=== PATIENT | female | born 1965 | race Caucasian/White ===

== ENCOUNTER 2017-09-18 06:42 | Observation (INO) | payer BC ==
[2017-09-18] MEDS ORDERED: TDAP Vaccine 0.5 mL Syr IM ONE (07:51)
--- NOTE | 2017-09-18 08:06 | ED PDOC ---
Arrival/HPI - General Chief Complaint: Medical Clearance Time Seen by Provider: 09/18/17 07:40 Historian: Patient - History of Present Illness Narrative History of Present Illness (Text): 09/18/17 07:57 52 year old female, whose past medical history includes chronic trigeminal neuralgia, presents to the emergency department complaining of exacerbation of her trigeminal neuralgia since last week that worsened yesterday. Patient was prescribed Trazodone 50mg and took it for the first time yesterday. Patient took 8 pills of total of 400mg trying to relieve the pain. She also reports taking Flexeril and Andrelpax as well. Patient reports she woke up at 6AM to go to work and had a syncopal episode. Patient chipped her front top tooth and has a laceration on the lower lip. Patient denies chest pain, palpitations, shortness of breath, abdominal pain, nausea, vomiting, diarrhea, or any other complaints. Time/Duration: 1 week Symptom Onset: Gradual Symptom Course: Worsening Activities at Onset: Light Context: Home Past Medical History - Provider Review Nursing Documentation Reviewed: Yes - Infectious Disease Hx of Infectious Diseases: None - Tetanus Immunization Tetanus Immunization: Unknown - Reproductive Menopause: Yes - Cardiac Hx Cardiac Disorders: No - Pulmonary Hx Respiratory Disorders: No - Neurological Hx Migraine: Yes Other/Comment: TRIGEMINAL NERVE PAIN - HEENT Hx HEENT Disorder: No - Renal Hx Renal Disorder: No - Endocrine/Metabolic Hx Endocrine Disorders: No - Hematological/Oncological Hx Blood Disorders: No - Integumentary Hx Dermatological Disorder: No - Musculoskeletal/Rheumatological Hx Musculoskeletal Disorders: No - Gastrointestinal Hx Gastrointestinal Disorders: No Other/Comment: ELEVATED LIVER ENZYMES - Genitourinary/Gynecological Hx Genitourinary Disorders: No - Psychiatric Hx Psychophysiologic Disorder: No Hx Depression: No Hx Emotional Abuse: No Hx Physical Abuse: No Hx Substance Use: No - Past Surgical History Past Surgical History: No Previous - Anesthesia Hx Anesthesia: No - Suicidal Assessment Feels Threatened In Home Enviroment: No Family/Social History - Physician Review Nursing Documentation Reviewed: Yes Family/Social History: No Known Family HX Smoking Status: Never Smoked Hx Alcohol Use: No Hx Substance Use: No Hx Substance Use Treatment: No Allergies/Home Meds Allergies/Adverse Reactions: Allergies Penicillins Adverse Reaction (Verified 09/18/17 07:17) RASH Home Medications: Home Meds Medication Instructions Recorded Confirmed Eletriptan HBr [Relpax] 40 mg PO PRN PRN 05/04/15 09/18/17 traZODone [trazODONE HYDROCHLORIDE] 50 mg PO HS 09/18/17 09/18/17 Review of Systems - Physician Review All systems were reviewed & negative as marked: Yes - Review of Systems Respiratory: absent: SOB Cardiovascular: absent: Chest Pain, Palpitations Gastrointestinal: absent: Abdominal Pain, Diarrhea, Nausea, Vomiting Physical Exam Vital Signs Reviewed: Yes Vital Signs Temp Pulse Resp BP Pulse Ox 09/18/17 13:40 67 18 100/57 L 97 09/18/17 11:09 61 18 106/71 97 09/18/17 06:58 97.6 F 54 L 16 99/64 L 97 Temperature: Afebrile Blood Pressure: Normal Pulse: Regular Respiratory Rate: Normal Appearance: Positive for: Well-Appearing, Non-Toxic, Comfortable Pain Distress: None Mental Status: Positive for: Alert and Oriented X 3 - Systems Exam Head: Present: Atraumatic, Normocephalic Pupils: Present: PERRL Extroacular Muscles: Present: EOMI Conjunctiva: Present: Normal Mouth: Present: Moist Mucous Membranes, Other (Chipped her front top right tooth and laceration to the lower lip) Pharnyx: No: ERYTHEMA, EXUDATE, TONSILS ENLARGED Neck: Present: Normal Range of Motion Respiratory/Chest: Present: Clear to Auscultation, Good Air Exchange. No: Respiratory Distress, Accessory Muscle Use Cardiovascular: Present: Regular Rate and Rhythm, Normal S1, S2. No: Murmurs Abdomen: Present: Normal Bowel Sounds. No: Tenderness, Distention, Peritoneal Signs Back: Present: Normal Inspection Upper Extremity: Present: Normal Inspection. No: Cyanosis, Edema Lower Extremity: Present: Normal Inspection. No: Edema Neurological: Present: GCS=15, CN II-XII Intact, Speech Normal, Motor Func Grossly Intact, Normal Sensory Function, Normal Cerebellar Funct, Norm Deep Tendon Reflexes, Gait Normal, Memory Normal, Normal 2Pt Descrimination Skin: Present: Warm, Dry, Normal Color, Laceration (2 cm lower lip laceration which does not cross the vermilion border.). No: Rashes Psychiatric: Present: Alert, Oriented x 3, Normal Insight, Normal Concentration Medical Decision Making ED Course and Treatment: 09/18/17 07:57 Impression: 52 year old female presents complaining of exacerbation of her trigeminal neuralgia since last week that worsened yesterday which caused her to take 8 pills of her Trazodone 50mg with her Flexeril and andrelpax. Patient had a syncopal episode at 6AM. Plan: -- CT Head w/o Contrast -- EKG -- Labs -- Chest X-ray -- Boostrix vaccine Inj -- Urinalysis -- Reassess and disposition Progress Notes: PROCEDURE: CT HEAD WITHOUT CONTRAST. Dictator : Otoniel Casey MD Report Date : 09/18/2017 08:53:42 IMPRESSION: Normal CT of the Head. No intracranial mass, hemorrhage or evidence of acute infarct. PROCEDURE: Chest X-ray Dictator : Otoniel Casey MD Report Date : 09/18/2017 09:07:56 IMPRESSION: No active disease. 09/18/17 11:40 Laceration repair. The wound was prepped and draped in usual sterile fashion using Betadine. Normal saline solution irrigation. 1% with epinephrine lidocaine was injected. The wound was closed with 5-0 nylon sutures. Sterile dressing was applied. Patient tolerated the procedure well. 09/18/17 11:43 EKG shows normal sinus rhythm rate approximately [address] or T-wave changes - Lab Interpretations Lab Results: 09/18/17 08:19 09/18/17 08:19 Lab Results 09/18/17 09:00: Urine Opiates Screen Negative, Urine Methadone Screen Negative, Ur Barbiturates Screen Negative, Ur Phencyclidine Scrn Negative, Ur Amphetamines Screen Negative, U Benzodiazepines Scrn Negative, U Oth Cocaine Metabols Negative, U Cannabinoids Screen Negative 09/18/17 09:00: Urine Color Yellow, Urine Appearance Clear, Urine pH 6.0, Ur Specific [place] 1.020, Urine Protein 30 H, Urine Glucose (UA) Negative, Urine Ketones Negative, Urine Blood Negative, Urine Nitrate Negative, Urine Bilirubin Negative, Urine Urobilinogen 0.2, Ur Leukocyte Esterase Negative, Urine RBC 0 - 2, Urine WBC 0 - 2, Ur Epithelial Cells 1 - 3, Amorphous Sediment Few, Urine Bacteria Few, Hyaline Casts 0 - 2, Coarse Granular Casts Trace H 09/18/17 08:19: Acetaminophen < 10.0 L 09/18/17 08:19: Alcohol, Quantitative < 10 09/18/17 08:19: Sodium 140, Potassium 4.1, Chloride 103, Carbon Dioxide 28, Anion Gap 13, BUN 21, Creatinine 0.7, Est GFR ( Amer) > 60, Est GFR (Non- Af Amer) > 60, Random Glucose 109, Calcium 9.6, Phosphorus 4.1, Magnesium 2.0, Total Bilirubin 0.4, AST 32, ALT 49, Alkaline Phosphatase 60, Lactate Dehydrogenase 405, Total Creatine Kinase 49, Troponin I < 0.01, Total Protein 7.1, Albumin 4.4, Globulin 2.8, Albumin/Globulin Ratio 1.6 09/18/17 08:19: PT 11.6, INR 1.01, APTT 23.5 L 09/18/17 08:19: WBC 3.4 L D, RBC 4.68, Hgb 13.8, Hct 41.3, MCV 88.2, MCH 29.5, MCHC 33.4, RDW 12.9, Plt Count 181, MPV 10.7, Gran % 58.9, Lymph % (Auto) 34.0, [place] % (Auto) 4.7, Eos % (Auto) 1.5, Baso % (Auto) 0.9, Gran # 2.01, Lymph # 1.2 , [place] # 0.2, Eos # 0.1, Baso # 0.03 I have reviewed the lab results: Yes - RAD Interpretation Radiology Orders: 09/18/17 07:49 HEAD W/O CONTRAST [CT] Stat 09/18/17 07:50 CHEST PORTABLE [RAD] Stat CT scan of the head as read by the radiologist shows no acute findings. Trade Embalmer: Radiologist - EKG Interpretation Interpreted by ED Physician: Yes Type: 12 lead EKG - Medication Orders Current Medication Orders: Carbamazepine (Tegretol) 100 mg PO TID ANDREA PRN Reason: Protocol Famotidine (Pepcid) 20 mg PO 1000,2200 ANDREA Gabapentin (Neurontin) 300 mg PO HS ANDREA PRN Reason: Protocol Heparin Sodium (Porcine) (Heparin) 5,000 units SC Q8 ANDREA PRN Reason: Protocol Last Admin: 09/18/17 14:57 Dose: 5,000 units MAR aPTT Document 09/18/17 14:57 LA (Rec: 09/18/17 15:02 LA [id number]) aPTT aPTT (secs) 23.5 Subcutaneous Administrations Document 09/18/17 14:57 LA (Rec: 09/18/17 15:02 LA [id number]) Injection Site MAR Injection Site Left Arm Charges for Administration # of Subcutaneous Administrations 1 Sodium Chloride (Sodium Chloride 0.9%) 1,000 mls @ 100 mls/hr IV .Q10H ANDREA Last Admin: 09/18/17 14:54 Dose: 100 mls/hr eMAR Start Stop Document 09/18/17 14:54 LA (Rec: 09/18/17 14:57 LA [id number]) Intravenous Solution Start Date 09/18/17 Start Time 14:57 Discontinued Medications Tetanus/Reduced Diphtheria/Acell Pertussis (Boostrix Vaccine Inj) 0.5 ml IM .ONCE ONE Stop: 09/18/17 07:52 Last Admin: 09/18/17 11:05 Dose: 0.5 ml MAR Immunization Data Document 09/18/17 11:05 [facility] (Rec: 09/18/17 11:06 [facility] [id number]) Immunization Data Vaccine Information Sheet Given No Immunization Registry Document 09/18/17 11:05 [facility] (Rec: 09/18/17 11:06 [facility] [id number]) Immunization Registry Consent Date 09/18/17 - Scribe Statement The provider has reviewed the documentation as recorded by the Justyn Fuchs Provider Scribe Attestation: All medical record entries made by the Kathyibjuan were at my direction and personally dictated by me. I have reviewed the chart and agree that the record accurately reflects my personal performance of the history, physical exam, medical decision making, and the department course for this patient. I have also personally directed, reviewed, and agree with the discharge instructions and disposition. Disposition/Present on Arrival - Present on Arrival Any Indicators Present on Arrival: No History of DVT/PE: No History of Uncontrolled Diabetes: No Urinary Catheter: No History of Decub. Ulcer: No History Surgical Site Infection Following: None - Disposition Have Diagnosis and Disposition been Completed?: Yes Diagnosis: Syncope, Overdose, Laceration of lower lip Disposition: HOSPITALIZED Disposition Time: 11:44 Patient Plan: Observation, Telemetry Patient Problems: Current Active Problems Problem Status Onset Laceration of lower lip Acute Overdose Acute Syncope Acute Condition: GOOD
[2017-09-18 08:29] LABS: BASO # 0.03 K/mm3 (0.0-2.0); BASO % 0.9 % (0.0-3.0); EOS # 0.1 (0.0-0.7); EOS % 1.5 % (1.5-5.0); GRAN # 2.01 (1.4-6.5); GRAN % 58.9 % (50.0-68.0); HEMOGLOBIN 13.8 g/dL (12.0-16.0); LYMPH # 1.2 (1.2-3.4); MEAN CELL VOLUME 88.2 fl (80.0-105.0); MEAN CORPUSCULAR HEMOGLOBIN 29.5 pg (25.0-35.0); MEAN CORPUSCULAR HGB CONC 33.4 g/dl (31.0-37.0); MEAN PLATELET VOLUME 10.7 fl (7.0-11.0); MONO # 0.2 (0.1-0.6); MONO % 4.7 % (1.0-6.0); RBC 4.68 10^6/uL (3.5-6.1); RED CELL DISTRIBUTION WIDTH 12.9 % (11.5-14.5); WHITE BLOOD COUNT 3.4 10^3/ul (4.5-11.0)
[2017-09-18 08:43] LABS: ALB/GLOB RATIO 1.6 (1.1-1.8); ALBUMIN 4.4 g/dL (3.0-4.8); ALT/SGPT 49 U/L (7-56); AST/SGOT 32 U/L (14-36); BLOOD UREA NITROGEN 21 mg/dL (7-21); CALCIUM 9.6 mg/dL (8.4-10.5); GFR AFRICAN-AMERICAN > 60; GFR NON-AFRICAN AMERICAN > 60
[2017-09-18 08:45] LABS: INR 1.01 (0.93-1.08); PARTIAL THROMBOPLASTIN TIME 23.5 Seconds (25.1-36.5); PROTHROMBIN TIME 11.6 SECONDS (9.4-12.5)
[2017-09-18 08:52] LABS: TROPONIN I < 0.01 ng/mL
--- NOTE | 2017-09-18 08:55 | CT ---
PROCEDURE: CT HEAD WITHOUT CONTRAST. HISTORY: syncope COMPARISON: None available. TECHNIQUE: Axial computed tomography images were obtained through the head/brain without intravenous contrast. Radiation dose: Total exam DLP = 814.63 mGy-cm. This CT exam was performed using one or more of the following dose reduction techniques: Automated exposure control, adjustment of the mA and/or kV according to patient size, and/or use of iterative reconstruction technique. FINDINGS: HEMORRHAGE: No intracranial hemorrhage. BRAIN: No mass effect or edema. No atrophy or chronic microvascular ischemic changes. VENTRICLES: Unremarkable. No hydrocephalus. CALVARIUM: Unremarkable. PARANASAL SINUSES: Unremarkable as visualized. No significant inflammatory changes. MASTOID AIR CELLS: Unremarkable as visualized. No inflammatory changes. OTHER FINDINGS: None. IMPRESSION: Normal CT of the Head. No intracranial mass, hemorrhage or evidence of acute infarct.
--- NOTE | 2017-09-18 09:09 | RAD ---
HISTORY: syncope COMPARISON: 10/31/2013 FINDINGS: LUNGS: No active pulmonary disease. PLEURA: No significant pleural effusion identified, no pneumothorax apparent. CARDIOVASCULAR: Normal. OSSEOUS STRUCTURES: No significant abnormalities. VISUALIZED UPPER ABDOMEN: Normal. OTHER FINDINGS: None. IMPRESSION: No active disease.
[2017-09-18 09:12] LABS: URINE APPEARANCE CLEAR (CLEAR); URINE BILIRUBIN NEGATIVE (NEGATIVE); URINE BLOOD NEGATIVE (NEGATIVE); URINE COLOR YELLOW (YELLOW); URINE GLUCOSE (UA) NEGATIVE (NEGATIVE); URINE LEUKOCYTE ESTERASE NEGATIVE Leu/uL (NEGATIVE); URINE NITRATE NEGATIVE (NEGATIVE); URINE PROTEIN 30 mg/dL (<30 mg/dL); URINE UROBILINOGEN 0.2 E.U./dL (<1 E.U./dL)
[2017-09-18 09:16] LABS: URINE BACTERIA FEW (NEG); URINE COARSE GRANULAR CAST TRACE /hpf (0-2); URINE RBC 0 - 2 /hpf (0-2); URINE WBC 0 - 2 /hpf (0-6)
[2017-09-18 09:17] LABS: URINE AMORPHOUS SEDIMENT FEW; URINE HYALINE CAST 0 - 2 /hpf
[2017-09-18 09:34] LABS: BARBITURATES, UR NEGATIVE (NEGATIVE); BENZODIAZEPINES, UR NEGATIVE (NEGATIVE); OPIATES, UR NEGATIVE (NEGATIVE); PHENCYCLIDINE, UR NEGATIVE (NEGATIVE)
[2017-09-18] MEDS ORDERED: Lidocaine 1% Inj (20ml) ONE (11:01)
[2017-09-18] MEDS: Sodium Chloride 0.9% 1,000 ML IV SCH (14:54)
--- NOTE | 2017-09-18 17:31 | CARD ---
APPROVED REPORT EKG Measurement Heart [id number] ID [id number] <Conclusion> Sinus bradycardia Possible Left atrial enlargement Borderline ECG
--- NOTE | 2017-09-18 17:41 | RAD ---
PROCEDURE: Right Knee Radiographs. HISTORY: fall COMPARISON: None. FINDINGS: BONES: Normal. No fracture. JOINTS: Normal. No osteoarthritis. JOINT EFFUSION: None. OTHER FINDINGS: None. IMPRESSION: Normal radiographs of the right knee.
--- NOTE | 2017-09-18 19:58 | CP.PCM.HP ---
<Mark Whiting - Last Filed: 09/18/17 19:44> History of Present Illness - History of Present Illness History of Present Illness: Mark Whiting DO PGY1 - Internal Medicine H&P CC: Fainting and fall HPI: 52 yo F with PMH of trigeminal neuralgia diagnosed in 2007 presents s/p fall this morning. Patient reports that yesterday night her pain flared up, so she took 300mg Carbemazepine at 7PM, then 900mg Gabapentin at 8PM, then 600mg Horizant at 11PM which finally enabled her to sleep. When she woke up in the morning, she again had the pain, and so she took 40mg Relpax and then 200mg Trazodone at 6AM. She had never taken Trazodone prior to this, and was not aware that it would cause drowsiness. After taking these medications, patient walked to her bathroom, then got dizzy and blacked out, hitting her face (lip and tooth) on the vanity in her bathroom, then fell to the floor. She denies any tongue biting, bowel/bladder incontinence. She reports that prior to this, she had stopped taking all her medications because she was prescribed ibuprofen for back pain, and was worried that it would interact with her other medications. She denies any thoughts of suicide or depression. Patient was seen at around 2 PM, at which time she denies any chest pain, shortness of breath, confusion, headache, nausea, vomiting, diarrhea, constipation, abdominal pain, palpitations, numbness, weakness, tremor, dizziness, vision changes, hearing loss, tinnitus, vertigo. She was only complaining of some clumsiness in her right arm, which was slightly improved since the morning, and pain in her right knee, which she had previously injured. Remainder of 12 point ROS negative. 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; lives at home with her FHx: DM in multiple family members All: Penicillins Present on Admission - Present on Admission Any Indicators Present on Admission: No Past Patient History - Infectious Disease Hx of Infectious Diseases: None - Tetanus Immunizations Tetanus Immunization: Unknown - Past Social History Smoking Status: Never Smoked - CARDIAC Hx Cardiac Disorders: No - PULMONARY Hx Respiratory Disorders: No - NEUROLOGICAL Hx Migraine: Yes Other/Comment: TRIGEMINAL NERVE PAIN - HEENT Hx HEENT Problems: No - RENAL Hx Chronic Kidney Disease: No - ENDOCRINE/METABOLIC Hx Endocrine Disorders: No - HEMATOLOGICAL/ONCOLOGICAL Hx Blood Disorders: No - INTEGUMENTARY Hx Dermatological Problems: No - MUSCULOSKELETAL/RHEUMATOLOGICAL Hx Musculoskeletal Disorders: No - GASTROINTESTINAL Hx Gastrointestinal Disorders: No Other/Comment: ELEVATED LIVER ENZYMES - GENITOURINARY/GYNECOLOGICAL Hx Genitourinary Disorders: No - PSYCHIATRIC Hx Psychophysiologic Disorder: No Hx Depression: No Hx Emotional Abuse: No Hx Physical Abuse: No Hx Substance Use: No - SURGICAL HISTORY Hx Surgeries: No - ANESTHESIA Hx Anesthesia: No Meds Home Medications: Home Medication List Medication Instructions Recorded Confirmed Type Gabapentin [Neurontin] 600 mg PO HS cap 09/19/17 Rx Methylprednisolone [Medrol Dose 4 mg PO DAILY #21 mg 09/19/17 Rx Pack (21 tabs)] carBAMazepine [Tegretol] 200 mg PO BID tab 09/19/17 Rx Allergies/Adverse Reactions: Allergies Allergy/AdvReac Type Severity Reaction Status Date / Time Penicillins AdvReac RASH Verified 09/18/17 07:17 Physical Exam - Constitutional Appears: Non-toxic, No Acute Distress - Head Exam Head Exam: NORMOCEPHALIC Additional comments: Chipped right maxillary incisor; stitches in place over lower lip - Eye Exam Eye Exam: EOMI, Normal appearance, PERRL. absent: Nystagmus, Periorbital tenderness, Scleral icterus - ENT Exam ENT Exam: Mucous Membranes Moist - Neck Exam Neck exam: Positive for: Normal Inspection - Respiratory Exam Respiratory Exam: Clear to Auscultation Bilateral, NORMAL BREATHING PATTERN - Cardiovascular Exam Cardiovascular Exam: RRR, +S1, +S2 - GI/Abdominal Exam GI & Abdominal Exam: Normal Bowel Sounds, Soft. absent: Tenderness - Extremities Exam Extremities exam: Positive for: full ROM, normal inspection. Negative for: pedal edema Additional comments: Medial aspect of right knee tender. No effusion. Knees appear symmetric. Full ROM intact - Neurological Exam Neurological exam: Alert, CN II-XII Intact, Oriented x3, Reflexes Normal - Expanded Neurological Exam Expanded Patient oriented to: person, place Cranial nerves: EOM's Intact: Normal, Tongue Deviation: Normal Ataxia: No Cerebellar Function: Finger to Nose: Normal, Heel to Francis: Normal Sensory exam: Lower Extremity Light Touch: Normal, Upper Extremity Light Touch: Normal Neuro motor strength exam: Left Upper Extremity: 5, Right Upper Extremity: 5, Left Lower Extremity: 5, Right Lower Extremity: 5 DTR: Achilles Tendon Left: 2+, Achilles Tendon Right: 2+, Bicep Left: 2+, Bicep Right: 2+ Coma Scale Eye Opening: SPONTANEOUS Coma Scale Motor Response: OBEYS COMMANDS Coma Scale Verbal: Oriented Coma Scale Total: 15 - Psychiatric Exam Psychiatric exam: Normal Affect, Normal Mood - Skin Skin Exam: Dry, Intact, Normal Color, Warm Results - Vital Signs Recent Vital Signs: Last Vital Signs Temp 97.6 F 09/18/17 06:58 Pulse 81 09/18/17 17:10 Resp 18 09/18/17 17:10 BP 111/79 09/18/17 17:10 Pulse Ox 99 09/18/17 17:10 - Labs Result Diagrams: 09/18/17 08:19 09/18/17 08:19 Assessment & Plan - Assessment and Plan (Free Text) Assessment: 52 yo F with PMH of trigeminal neuralgia presents after accidental overdose and fall Plan Medication overdose - Patient took multiple antiepileptics and sedatives within 12 hours at supertherapeutic doses and subsequently syncopized and fell - Called poison control who recommended monitoring for signs of serotonergic excess for 6-8 hours - Currently VSS, all labs WNL, and neuro exam unremarkable - Seizure precautions - Neurochecks and Vitals Q6H - Admit to telemetry for monitoring Fall with head trauma - Patient has chipped tooth and facial laceration; stitched in ER - CT head negative - Patient seen ambulating in ER - Neuro exam normal - Fall precautions - Patient also complaining of right knee pain; ordered XR - PT eval/treat Trigeminal neuralgia - Patient is on multiple medications for pain, but does not take them consistently, and does not seem to understand when or how to use PRN medications - Resume Gabapentin and Carbapazepine tonight, which patient reports regular use of - Requested neurology consult; appreciate recs GI/DVT Ppx: Pepcid and Heparin Patient seen, discussed, and reviewed with attending Dr. Rousseau <Randell Rousseau - Last Filed: 09/19/17 16:57> Results - Vital Signs Recent Vital Signs: Last Vital Signs Temp 97.8 F 09/19/17 05:35 Pulse 78 09/19/17 10:00 Resp 20 09/19/17 05:35 BP 113/77 09/19/17 05:35 Pulse Ox 97 09/19/17 05:35 - Labs Result Diagrams: 09/19/17 06:40 09/19/17 06:40 Labs: Laboratory Results - last 24 hr 09/19/17 09/19/17 06:40 06:40 WBC 3.9 L RBC 4.28 Hgb 12.4 Hct 37.4 MCV 87.4 MCH 29.0 MCHC 33.2 RDW 12.9 Plt Count 195 MPV 11.0 Gran % 49.6 L Lymph % (Auto) 43.0 H [place] % (Auto) 5.1 Eos % (Auto) 1.8 Baso % (Auto) 0.5 Gran # 1.94 Lymph # 1.7 [place] # 0.2 Eos # 0.1 Baso # 0.02 Sodium 141 Potassium 4.1 Chloride 107 Carbon Dioxide 27 Anion Gap 11 BUN 16 Creatinine 0.7 Est GFR ( Amer) > 60 Est GFR (Non-Af Amer) > 60 Random Glucose 102 Calcium 9.6 Phosphorus 3.7 Magnesium 2.0 Total Bilirubin 0.4 AST 24 ALT 47 Alkaline Phosphatase 60 Total Protein 6.6 Albumin 3.9 Globulin 2.7 Albumin/Globulin Ratio 1.4 Attending/Attestation - Attestation I have personally seen and examined this patient.: Yes I have fully participated in the care of the patient.: Yes I have reviewed all pertinent clinical information: Yes Notes (Text): I have seen and examined the patient at bedside. Agree with the above note with the following additions/ exceptions: Briefly this is 52 year old female with history of trigeminal neuralgia who overmedicated herself accidentally and fell. Patient was not aware of medications side effects. Teaching provided. Poison control was notified. Patient expressed concerns regarding persistent facial pain and headache. Neurologist will be consulted. CT head negative. Lip laceration was repaired in ED. Reports knee pain status post fall. Xray pending. Upon discharge patient will follow up with Dr Trinh and PMD of choice. Dr Randell rousseau
[2017-09-19 01:03] VITALS: RESP 20
[2017-09-19 01:37] VITALS: O2SAT 97
[2017-09-19 05:36] VITALS: BP 113/77; TEMP 97.8
[2017-09-19 07:18] LABS: BASO # 0.02 K/mm3 (0.0-2.0); BASO % 0.5 % (0.0-3.0); EOS # 0.1 (0.0-0.7); EOS % 1.8 % (1.5-5.0); GRAN # 1.94 (1.4-6.5); GRAN % 49.6 % (50.0-68.0); HEMOGLOBIN 12.4 g/dL (12.0-16.0); LYMPH # 1.7 (1.2-3.4); MEAN CELL VOLUME 87.4 fl (80.0-105.0); MEAN CORPUSCULAR HGB CONC 33.2 g/dl (31.0-37.0); MONO # 0.2 (0.1-0.6); MONO % 5.1 % (1.0-6.0); RBC 4.28 10^6/uL (3.5-6.1); RED CELL DISTRIBUTION WIDTH 12.9 % (11.5-14.5); WHITE BLOOD COUNT 3.9 10^3/ul (4.5-11.0)
[2017-09-19 07:34] LABS: ALB/GLOB RATIO 1.4 (1.1-1.8); ALBUMIN 3.9 g/dL (3.0-4.8); ALT/SGPT 47 U/L (7-56); AST/SGOT 24 U/L (14-36); BLOOD UREA NITROGEN 16 mg/dL (7-21); CALCIUM 9.6 mg/dL (8.4-10.5); GFR AFRICAN-AMERICAN > 60; GFR NON-AFRICAN AMERICAN > 60
--- NOTE | 2017-09-19 08:04 | CP.PCM.CON ---
<Greta Spears - Last Filed: 09/19/17 10:43> History of Present Illness - History of Present Illness History of Present Illness: PGY-[address] Prado Neurology consult: trigeminal neuralgia and overdose Ms Zenobia Hererra, 52 yo F, with PMH of trigeminal neuralgia presents s/p fall this morning. Patient reports that her trigeminal neuralgia pain flared up the previous night, so she took the following in 3 consecutive days: 3 nights ago: 300mg Carbemazepine 2 days ago: 900mg Gabapentin at 8PM then 600mg Horizant (gabapentin) at 11PM Yesterday: 40mg Relpax (Eletriptan) and then 200mg Trazodone at 6AM. She had never taken Trazodone prior to this, and was not aware that it would cause drowsiness. After taking these medications, patient walked to her bathroom , then got dizzy and blacked out, hitting her face (lip and tooth) on the vanity in her bathroom, then fell to the floor. She denies any tongue biting, bowel/bladder incontinence. She reports that prior to this, she had stopped taking all her medications because she was prescribed ibuprofen for back pain, and was worried that it would interact with her other medications. She denies any thoughts of suicide or depression. As for her trigeminal neuralgia, the onset was in 2012. Average frequency was once a year. The frequency and severity changes in 2016, and triggers became more trivial. Wind, heat, chewing, exercises may triggered a severe episode. It is often associated with tearing in eyes and occasionally radiates to whole face b/l. ROS - denies any chest pain, shortness of breath, confusion, headache, nausea, vomiting, diarrhea, constipation, abdominal pain, palpitations, numbness, weakness, tremor, dizziness, vision changes, hearing loss, tinnitus, vertigo. She was only complaining of some clumsiness in her right arm, which was slightly improved since the morning, and pain in her right knee, which she had previously injured. 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; lives at home with her All: Penicillins Med: Carbemazepine Horizant (pro-drug gabapentin) Gabapentin Eletriptan Trazodone Review of Systems - Review of Systems All systems: reviewed and no additional remarkable complaints except Review of Systems: As in HPI Past Patient History - Infectious Disease Hx of Infectious Diseases: None - Tetanus Immunizations Tetanus Immunization: Unknown - Past Social History Smoking Status: Never Smoked - CARDIAC Hx Cardiac Disorders: Yes Hx Hypertension: Yes Other/Comment: chest pain - PULMONARY Hx Respiratory Disorders: No - NEUROLOGICAL Hx Dizziness: Yes Hx Migraine: Yes Other/Comment: TRIGEMINAL NERVE PAIN - HEENT Hx HEENT Problems: No - RENAL Hx Chronic Kidney Disease: No - ENDOCRINE/METABOLIC Hx Endocrine Disorders: No - HEMATOLOGICAL/ONCOLOGICAL Hx Blood Disorders: No - INTEGUMENTARY Hx Dermatological Problems: No - MUSCULOSKELETAL/RHEUMATOLOGICAL Hx Musculoskeletal Disorders: Yes Hx Falls: Yes - GASTROINTESTINAL Hx Gastrointestinal Disorders: Yes Other/Comment: ELEVATED LIVER ENZYMES - GENITOURINARY/GYNECOLOGICAL Hx Genitourinary Disorders: Yes Hx Urinary Tract Infection: Yes - PSYCHIATRIC Hx Psychophysiologic Disorder: No Hx Depression: No Hx Emotional Abuse: No Hx Physical Abuse: No - SURGICAL HISTORY Hx Surgeries: No - ANESTHESIA Hx Anesthesia: No Meds Allergies/Adverse Reactions: Allergies Allergy/AdvReac Type Severity Reaction Status Date / Time Penicillins AdvReac RASH Verified 09/18/17 07:17 - Medications Medications: Current Medications Carbamazepine (Tegretol) 100 mg PO TID [facility] PRN Reason: Protocol Famotidine (Pepcid) 20 mg PO 1000,2200 [facility] Last Admin: 09/18/17 23:09 Dose: 20 mg Gabapentin (Neurontin) 300 mg PO HS [facility] PRN Reason: Protocol Last Admin: 09/18/17 23:09 Dose: 300 mg Heparin Sodium (Porcine) (Heparin) 5,000 units SC Q8 [facility] PRN Reason: Protocol Last Admin: 09/19/17 06:05 Dose: Not Given Sodium Chloride (Sodium Chloride 0.9%) 1,000 mls @ 100 mls/hr IV .Q10H [facility] Last Admin: 09/19/17 00:00 Dose: Not Given Physical Exam - Constitutional Appears: No Acute Distress - Head Exam Head Exam: NORMAL INSPECTION, NORMOCEPHALIC Additional comments: stitches on lip - Eye Exam Eye Exam: EOMI, Normal appearance, PERRL. absent: Scleral icterus Pupil Exam: NORMAL ACCOMODATION - ENT Exam ENT Exam: Mucous Membranes Moist - Neck Exam Additional comments: supple - Respiratory Exam Respiratory Exam: Clear to Auscultation Bilateral, NORMAL BREATHING PATTERN. absent: Rales, Rhonchi, Wheezes - Cardiovascular Exam Cardiovascular Exam: REGULAR RHYTHM, +S1, +S2 - GI/Abdominal Exam GI & Abdominal Exam: Normal Bowel Sounds, Soft. absent: Tenderness - Neurological Exam Neurological exam: Alert, CN II-XII Intact, Normal Gait, Oriented x3, Reflexes Normal Additional comments: speech: fluent recall: 3/3 motor: 5/5 sensory: intact coordination finger to nose: intact. no drifting rapid alternating movement: intact gait: normal - Psychiatric Exam Psychiatric exam: Normal Affect, Normal Mood Additional comments: denies suicidal ideation - Skin Skin Exam: Dry, Warm Results - Vital Signs Recent Vital Signs: Last Vital Signs Temp 97.8 F 09/19/17 05:35 Pulse 75 09/19/17 05:35 Resp 20 09/19/17 05:35 BP 113/77 09/19/17 05:35 Pulse Ox 97 09/19/17 05:35 - Labs Result Diagrams: 09/19/17 06:40 09/19/17 06:40 Labs: Laboratory Results - last 24 hr 09/19/17 09/19/17 06:40 06:40 WBC 3.9 L RBC 4.28 Hgb 12.4 Hct 37.4 MCV 87.4 MCH 29.0 MCHC 33.2 RDW 12.9 Plt Count 195 MPV 11.0 Gran % 49.6 L Lymph % (Auto) 43.0 H [place] % (Auto) 5.1 Eos % (Auto) 1.8 Baso % (Auto) 0.5 Gran # 1.94 Lymph # 1.7 [place] # 0.2 Eos # 0.1 Baso # 0.02 Sodium 141 Potassium 4.1 Chloride 107 Carbon Dioxide 27 Anion Gap 11 BUN 16 Creatinine 0.7 Est GFR ( Amer) > 60 Est GFR (Non-Af Amer) > 60 Random Glucose 102 Calcium 9.6 Phosphorus 3.7 Magnesium 2.0 Total Bilirubin 0.4 AST 24 ALT 47 Alkaline Phosphatase 60 Total Protein 6.6 Albumin 3.9 Globulin 2.7 Albumin/Globulin Ratio 1.4 Assessment & Plan - Assessment and Plan (Free Text) Plan: Ms Zenobia Herrera, 52 yo F, with worsening trigeminal neuralgia admitted s/p fall due to loss of consciouness after taking pain medicine for an acute trigeminal neuralgia flare. Pt denied suicidal ideation. Neurology was consulted for management of trigeminal neuralgia, acute flair - MRA head w/wo contrast - MRI TMJ - Orthostativ VS - For daily maintenance: Carbemazapine 200 BID and gabapentin 600 HS. Do not skip doses. - For acute episode: - follow up outpatient in the office for switiching to horizant - If resistance to medical managment, consider elective Gamma Knife trigeminal neuralgia treatment s/r/d/w Dr. Prado <Chris Prado - Last Filed: 09/19/17 12:25> Meds - Medications Medications: Current Medications Carbamazepine (Tegretol) 200 mg PO BID [facility] PRN Reason: Protocol Last Admin: 09/19/17 10:16 Dose: Not Given Famotidine (Pepcid) 20 mg PO 1000,2200 [facility] Last Admin: 09/19/17 09:59 Dose: 20 mg Gabapentin (Neurontin) 300 mg PO DAILY [facility] PRN Reason: Protocol Last Admin: 09/19/17 09:59 Dose: 300 mg Gabapentin (Neurontin) 600 mg PO HS [facility] PRN Reason: Protocol Heparin Sodium (Porcine) (Heparin) 5,000 units SC Q8 [facility] PRN Reason: Protocol Last Admin: 09/19/17 06:05 Dose: Not Given Sodium Chloride (Sodium Chloride 0.9%) 1,000 mls @ 100 mls/hr IV .Q10H [facility] Last Admin: 09/19/17 10:12 Dose: Not Given Results - Vital Signs Recent Vital Signs: Last Vital Signs Temp 97.8 F 09/19/17 05:35 Pulse 75 09/19/17 05:35 Resp 20 09/19/17 05:35 BP 113/77 09/19/17 05:35 Pulse Ox 97 09/19/17 05:35 - Labs Result Diagrams: 09/19/17 06:40 09/19/17 06:40 Labs: Laboratory Results - last 24 hr 09/19/17 09/19/17 06:40 06:40 WBC 3.9 L RBC 4.28 Hgb 12.4 Hct 37.4 MCV 87.4 MCH 29.0 MCHC 33.2 RDW 12.9 Plt Count 195 MPV 11.0 Gran % 49.6 L Lymph % (Auto) 43.0 H [place] % (Auto) 5.1 Eos % (Auto) 1.8 Baso % (Auto) 0.5 Gran # 1.94 Lymph # 1.7 [place]herty # 0.2 Eos # 0.1 Baso # 0.02 Sodium 141 Potassium 4.1 Chloride 107 Carbon Dioxide 27 Anion Gap 11 BUN 16 Creatinine 0.7 Est GFR ( Amer) > 60 Est GFR (Non-Af Amer) > 60 Random Glucose 102 Calcium 9.6 Phosphorus 3.7 Magnesium 2.0 Total Bilirubin 0.4 AST 24 ALT 47 Alkaline Phosphatase 60 Total Protein 6.6 Albumin 3.9 Globulin 2.7 Albumin/Globulin Ratio 1.4 Attending/Attestation - Attestation I have personally seen and examined this patient.: Yes I have fully participated in the care of the patient.: Yes I have reviewed all pertinent clinical information: Yes Notes (Text): 09/19/17 12:24 FOR TRIGEMINAL NEURALGIA SHOULD BE ON CARBAMEZAPINE 200 MG PO BID AND GABAPENTIN 300MG QAM AND 600MG PO QHS. SHE WILL SEE ME OUTPATIENT FOR FURTHER MANAGEMENT.
[2017-09-19] MEDS: Sodium Chloride 0.9% 1,000 ML IV SCH ×2 (10:12)
[2017-09-19 13:25] VITALS: PULSE 78
--- NOTE | 2017-09-19 15:52 | CARD ---
APPROVED REPORT EKG Measurement Heart [id number] <Conclusion> Normal sinus rhythm Possible Left atrial enlargement Borderline ECG
--- NOTE | 2017-09-19 17:27 | CP.PCM.DIS ---
<JohanneMark - Last Filed: 09/19/17 17:19> Provider - Provider Date of Admission: 09/18/17 12:04 Attending physician: Randell Rousseau MD Consults: Neuro: Johan Time Spent in preparation of Discharge (in minutes): 45 Diagnosis - Discharge Diagnosis (1) Laceration of lower lip Status: Acute (2) Overdose Status: Acute (3) Minor head injury Status: Acute Hospital Course - Lab Results Lab Results: Most Recent Lab Values WBC 3.9 10^3/ul (4.5-11.0) L 09/19/17 06:40 RBC 4.28 10^6/uL (3.5-6.1) 09/19/17 06:40 Hgb 12.4 g/dL (12.0-16.0) 09/19/17 06:40 Hct 37.4 % (36.0-48.0) 09/19/17 06:40 MCV 87.4 fl (80.0-105.0) 09/19/17 06:40 MCH 29.0 pg (25.0-35.0) 09/19/17 06:40 MCHC 33.2 g/dl (31.0-37.0) 09/19/17 06:40 RDW 12.9 % (11.5-14.5) 09/19/17 06:40 Plt Count 195 10^3/uL (120.0-450.0) 09/19/17 06:40 MPV 11.0 fl (7.0-11.0) 09/19/17 06:40 Gran % 49.6 % (50.0-68.0) L 09/19/17 06:40 Lymph % (Auto) 43.0 % (22.0-35.0) H 09/19/17 06:40 [place] % (Auto) 5.1 % (1.0-6.0) 09/19/17 06:40 Eos % (Auto) 1.8 % (1.5-5.0) 09/19/17 06:40 Baso % (Auto) 0.5 % (0.0-3.0) 09/19/17 06:40 Gran # 1.94 (1.4-6.5) 09/19/17 06:40 Lymph # 1.7 (1.2-3.4) 09/19/17 06:40 [place] # 0.2 (0.1-0.6) 09/19/17 06:40 Eos # 0.1 (0.0-0.7) 09/19/17 06:40 Baso # 0.02 K/mm3 (0.0-2.0) 09/19/17 06:40 PT 11.6 SECONDS (9.4-12.5) 09/18/17 08:19 INR 1.01 (0.93-1.08) 09/18/17 08:19 APTT 23.5 Seconds (25.1-36.5) L 09/18/17 08:19 Sodium 141 mmol/L (132-148) 09/19/17 06:40 Potassium 4.1 mmol/L (3.6-5.0) 09/19/17 06:40 Chloride 107 mmol/L (98-107) 09/19/17 06:40 Carbon Dioxide 27 mmol/L (21-33) 09/19/17 06:40 Anion Gap 11 (10-20) 09/19/17 06:40 BUN 16 mg/dL (7-21) 09/19/17 06:40 Creatinine 0.7 mg/dl (0.7-1.2) 09/19/17 06:40 Est GFR ( Amer) > 60 09/19/17 06:40 Est GFR (Non-Af Amer) > 60 09/19/17 06:40 Random Glucose 102 mg/dL (70-110) 09/19/17 06:40 Calcium 9.6 mg/dL (8.4-10.5) 09/19/17 06:40 Phosphorus 3.7 mg/dL (2.5-4.5) 09/19/17 06:40 Magnesium 2.0 mg/dL (1.7-2.2) 09/19/17 06:40 Total Bilirubin 0.4 mg/dL (0.2-1.3) 09/19/17 06:40 AST 24 U/L (14-36) 09/19/17 06:40 ALT 47 U/L (7-56) 09/19/17 06:40 Alkaline Phosphatase 60 U/L (38-126) 09/19/17 06:40 Lactate Dehydrogenase 405 U/L (333-699) 09/18/17 08:19 Total Creatine Kinase 49 U/L (35-230) 09/18/17 08:19 Troponin I < 0.01 ng/mL 09/18/17 08:19 Total Protein 6.6 g/dL (5.8-8.3) 09/19/17 06:40 Albumin 3.9 g/dL (3.0-4.8) 09/19/17 06:40 Globulin 2.7 gm/dL 09/19/17 06:40 Albumin/Globulin Ratio 1.4 (1.1-1.8) 09/19/17 06:40 Urine Color Yellow (YELLOW) 09/18/17 09:00 Urine Appearance Clear (CLEAR) 09/18/17 09:00 Urine pH 6.0 (4.7-8.0) 09/18/17 09:00 Ur Specific [place] 1.020 (1.005-1.035) 09/18/17 09:00 Urine Protein 30 mg/dL (<30 mg/dL) H 09/18/17 09:00 Urine Glucose (UA) Negative mg/dL (NEGATIVE) 09/18/17 09:00 Urine Ketones Negative mg/dL (NEGATIVE) 09/18/17 09:00 Urine Blood Negative (NEGATIVE) 09/18/17 09:00 Urine Nitrate Negative (NEGATIVE) 09/18/17 09:00 Urine Bilirubin Negative (NEGATIVE) 09/18/17 09:00 Urine Urobilinogen 0.2 E.U./dL (<1 E.U./dL) 09/18/17 09:00 Ur Leukocyte Esterase Negative Brian/uL (NEGATIVE) 09/18/17 09:00 Urine RBC 0 - 2 /hpf (0-2) 09/18/17 09:00 Urine WBC 0 - 2 /hpf (0-6) 09/18/17 09:00 Ur Epithelial Cells 1 - 3 /hpf (0-5) 09/18/17 09:00 Amorphous Sediment Few 09/18/17 09:00 Urine Bacteria Few (NEG) 09/18/17 09:00 Hyaline Casts 0 - 2 /hpf 09/18/17 09:00 Coarse Granular Casts Trace /hpf (0-2) H 09/18/17 09:00 Urine Opiates Screen Negative (NEGATIVE) 09/18/17 09:00 Urine Methadone Screen Negative (NEGATIVE) 09/18/17 09:00 Acetaminophen < 10.0 ug/ml (10.0-20.0) L 09/18/17 08:19 Ur Barbiturates Screen Negative (NEGATIVE) 09/18/17 09:00 Ur Phencyclidine Scrn Negative (NEGATIVE) 09/18/17 09:00 Ur Amphetamines Screen Negative (NEGATIVE) 09/18/17 09:00 U Benzodiazepines Scrn Negative (NEGATIVE) 09/18/17 09:00 U Oth Cocaine Metabols Negative (NEGATIVE) 09/18/17 09:00 U Cannabinoids Screen Negative (NEGATIVE) 09/18/17 09:00 Alcohol, Quantitative < 10 mg/dL (0-10) 09/18/17 08:19 - Hospital Course Hospital Course: 52 yo F with PMH of trigeminal neuralgia presents after accidental overdose and fall. Patient had taken multiple medications, some of which were new to her, in an effort to relieve her pain. She denied - and did not show any signs of - depression or suicidal thoughts. Initial evaluation ruled out intracranial hemorrhage or skull fracture. She was monitored overnight on telemetry with no abnormal rhythms, had stable vital signs, and no electrolyte abnormalities on repeat labs. She was educated on all her medications and how to take them, and how not to take them, and was given instructions for follow up; patient verbalized understanding and agreement. Today, the patient feels well overall with no particular complaints. She denies any chest pain, shortness of breath, weakness, numbness, parasthesias, gait instability, nausea, vomiting, diarrhea, constipation. Patient was seen by the neurologist and given new prescriptions for the medications she should be taking, and instructions for follow up with him. Patient was discharged to home. Discharge Exam - Head Exam Head Exam: NORMAL INSPECTION, NORMOCEPHALIC - Eye Exam Eye Exam: EOMI, Normal appearance, PERRL - ENT Exam ENT Exam: Mucous Membranes Moist - Neck Exam Neck exam: Normal Inspection - Respiratory Exam Respiratory Exam: Clear to PA & Lateral, NORMAL BREATHING PATTERN - Cardiovascular Exam Cardiovascular Exam: REGULAR RHYTHM, +S1, +S2. absent: Bradycardia, Tachycardia - GI/Abdominal Exam GI & Abdominal Exam: Normal Bowel Sounds, Soft. absent: Tenderness - Extremities Exam Extremities exam: full ROM, normal inspection - Neurological Exam Neurological exam: Alert, CN II-XII Intact, Normal Gait, Oriented x3, Reflexes Normal - Psychiatric Exam Psychiatric exam: Normal Affect, Normal Mood - Skin Skin Exam: Dry, Intact, Normal Color Discharge Plan - Discharge Medications Prescriptions: Methylprednisolone [Medrol Dose Pack (21 tabs)] 4 mg PO DAILY #21 mg - Follow Up Plan Condition: GOOD Disposition: HOME/ ROUTINE Instructions: Syncope (DC) Additional Instructions: 1. Continue to take Medrol dose [place], Tegretol, and Gabapentin as prescribed by Dr. Prado 2. Follow up with outpatient MRI and MRA, as prescribed by Dr. Prado 3. For acute flares, contact your neurologist or return to ER; do not take medications of your own accord except as prescribed by Dr. Prado 4. Follow up with Dr. Prado as indicated 5. Follow up with your primary care doctor within one week 6. For any new or worsening concerns, contact your PCP immediately or return to the ER Referrals: Chris rPado MD [Staff Provider] - PCP,NO [Non-Staff] - <Randell Rousseau - Last Filed: 09/19/17 18:55> Provider - Provider Date of Admission: 09/18/17 12:04 Attending physician: Randell Rousseau MD Hospital Course - Lab Results Lab Results: Most Recent Lab Values WBC 3.9 10^3/ul (4.5-11.0) L 09/19/17 06:40 RBC 4.28 10^6/uL (3.5-6.1) 09/19/17 06:40 Hgb 12.4 g/dL (12.0-16.0) 09/19/17 06:40 Hct 37.4 % (36.0-48.0) 09/19/17 06:40 MCV 87.4 fl (80.0-105.0) 09/19/17 06:40 MCH 29.0 pg (25.0-35.0) 09/19/17 06:40 MCHC 33.2 g/dl (31.0-37.0) 09/19/17 06:40 RDW 12.9 % (11.5-14.5) 09/19/17 06:40 Plt Count 195 10^3/uL (120.0-450.0) 09/19/17 06:40 MPV 11.0 fl (7.0-11.0) 09/19/17 06:40 Gran % 49.6 % (50.0-68.0) L 09/19/17 06:40 Lymph % (Auto) 43.0 % (22.0-35.0) H 09/19/17 06:40 [place] % (Auto) 5.1 % (1.0-6.0) 09/19/17 06:40 Eos % (Auto) 1.8 % (1.5-5.0) 09/19/17 06:40 Baso % (Auto) 0.5 % (0.0-3.0) 09/19/17 06:40 Gran # 1.94 (1.4-6.5) 09/19/17 06:40 Lymph # 1.7 (1.2-3.4) 09/19/17 06:40 [place] # 0.2 (0.1-0.6) 09/19/17 06:40 Eos # 0.1 (0.0-0.7) 09/19/17 06:40 Baso # 0.02 K/mm3 (0.0-2.0) 09/19/17 06:40 PT 11.6 SECONDS (9.4-12.5) 09/18/17 08:19 INR 1.01 (0.93-1.08) 09/18/17 08:19 APTT 23.5 Seconds (25.1-36.5) L 09/18/17 08:19 Sodium 141 mmol/L (132-148) 09/19/17 06:40 Potassium 4.1 mmol/L (3.6-5.0) 09/19/17 06:40 Chloride 107 mmol/L (98-107) 09/19/17 06:40 Carbon Dioxide 27 mmol/L (21-33) 09/19/17 06:40 Anion Gap 11 (10-20) 09/19/17 06:40 BUN 16 mg/dL (7-21) 09/19/17 06:40 Creatinine 0.7 mg/dl (0.7-1.2) 09/19/17 06:40 Est GFR ( Amer) > 60 09/19/17 06:40 Est GFR (Non-Af Amer) > 60 09/19/17 06:40 Random Glucose 102 mg/dL (70-110) 09/19/17 06:40 Calcium 9.6 mg/dL (8.4-10.5) 09/19/17 06:40 Phosphorus 3.7 mg/dL (2.5-4.5) 09/19/17 06:40 Magnesium 2.0 mg/dL (1.7-2.2) 09/19/17 06:40 Total Bilirubin 0.4 mg/dL (0.2-1.3) 09/19/17 06:40 AST 24 U/L (14-36) 09/19/17 06:40 ALT 47 U/L (7-56) 09/19/17 06:40 Alkaline Phosphatase 60 U/L (38-126) 09/19/17 06:40 Lactate Dehydrogenase 405 U/L (333-699) 09/18/17 08:19 Total Creatine Kinase 49 U/L (35-230) 09/18/17 08:19 Troponin I < 0.01 ng/mL 09/18/17 08:19 Total Protein 6.6 g/dL (5.8-8.3) 09/19/17 06:40 Albumin 3.9 g/dL (3.0-4.8) 09/19/17 06:40 Globulin 2.7 gm/dL 09/19/17 06:40 Albumin/Globulin Ratio 1.4 (1.1-1.8) 09/19/17 06:40 Urine Color Yellow (YELLOW) 09/18/17 09:00 Urine Appearance Clear (CLEAR) 09/18/17 09:00 Urine pH 6.0 (4.7-8.0) 09/18/17 09:00 Ur Specific [place] 1.020 (1.005-1.035) 09/18/17 09:00 Urine Protein 30 mg/dL (<30 mg/dL) H 09/18/17 09:00 Urine Glucose (UA) Negative mg/dL (NEGATIVE) 09/18/17 09:00 Urine Ketones Negative mg/dL (NEGATIVE) 09/18/17 09:00 Urine Blood Negative (NEGATIVE) 09/18/17 09:00 Urine Nitrate Negative (NEGATIVE) 09/18/17 09:00 Urine Bilirubin Negative (NEGATIVE) 09/18/17 09:00 Urine Urobilinogen 0.2 E.U./dL (<1 E.U./dL) 09/18/17 09:00 Ur Leukocyte Esterase Negative Brian/uL (NEGATIVE) 09/18/17 09:00 Urine RBC 0 - 2 /hpf (0-2) 09/18/17 09:00 Urine WBC 0 - 2 /hpf (0-6) 09/18/17 09:00 Ur Epithelial Cells 1 - 3 /hpf (0-5) 09/18/17 09:00 Amorphous Sediment Few 09/18/17 09:00 Urine Bacteria Few (NEG) 09/18/17 09:00 Hyaline Casts 0 - 2 /hpf 09/18/17 09:00 Coarse Granular Casts Trace /hpf (0-2) H 09/18/17 09:00 Urine Opiates Screen Negative (NEGATIVE) 09/18/17 09:00 Urine Methadone Screen Negative (NEGATIVE) 09/18/17 09:00 Acetaminophen < 10.0 ug/ml (10.0-20.0) L 09/18/17 08:19 Ur Barbiturates Screen Negative (NEGATIVE) 09/18/17 09:00 Ur Phencyclidine Scrn Negative (NEGATIVE) 09/18/17 09:00 Ur Amphetamines Screen Negative (NEGATIVE) 09/18/17 09:00 U Benzodiazepines Scrn Negative (NEGATIVE) 09/18/17 09:00 U Oth Cocaine Metabols Negative (NEGATIVE) 09/18/17 09:00 U Cannabinoids Screen Negative (NEGATIVE) 09/18/17 09:00 Alcohol, Quantitative < 10 mg/dL (0-10) 09/18/17 08:19 Attending/Attestation - Attestation I have personally seen and examined this patient.: Yes I have fully participated in the care of the patient.: Yes I have reviewed all pertinent clinical information, including history, physical exam and plan: Yes Notes (Text): I have seen and examined the patient at bedside. Agree with the above note with the following additions/ exceptions: Briefly this is 52 year old female with history of trigeminal neuralgia who overmedicated herself accidentally and fell. Patient was not aware of medications side effects. Teaching provided. Poison control was notified. Patient expressed concerns regarding persistent facial pain and headache. Neurologist were consulted. CT head negative. Her medications were adjusted. It was advised to take carbamazepine 200 bid and gabapentin 300 in am and 600 hs. Patient verbalized understanding. Lip laceration was repaired in ED. Patient was able to walk without any pain or dizziness.Upon discharge patient will follow up with Dr Prado and PMD of choice. Dr Randell rousseau
== END 2017-09-19 16:09 | disposition home or self-care (01) ==
LOC: ED 06:42 → ERH 12:04 → 3RSO 22:25
PROVIDERS: ADMIT Internal Medicine; ATTEND Hospitalist
DX: T50.991A Poisoning by other drugs, medicaments and biological substances, accidental (unintentional), initial encounter (principal); G50.0 Trigeminal neuralgia; S01.511A Laceration without foreign body of lip, initial encounter; W18.30XA Fall on same level, unspecified, initial encounter; Y93.89 Activity, other specified; Y92.002 Bathroom of unspecified non-institutional (private) residence as the place of occurrence of the external cause; Z23 Encounter for immunization
CPT/HCPCS: 12011; 36415; 70450; 71045; 73562; 80053; 81001; 82550; 83615; 83735; 84100; 84484; 85025; 85610; 85730; 90471; 90715; 93005; 96372; 97161; 97530; 99283; G0378; G0480; G8978; G8979; G8980; J1644; J7040

== ENCOUNTER 2018-09-01 07:34 | Emergency (ER) | payer BC ==
--- NOTE | 2018-09-01 08:05 | ED PDOC ---
Arrival/HPI - General Chief Complaint: Headache Time Seen by Provider: 09/01/18 07:41 Historian: Patient - History of Present Illness Narrative History of Present Illness (Text): 09/01/18 07:54 A 53 year old female, whose past medical history includes Trigeminal neuralgia, presents to the emergency department for further evaluation. Patient reports that she has a history of trigeminal neuralgia for years for which she was on Lyrica and Gabapentin. She reports that the medications are no longer working. She state that she got an old prescription from her neurologist, Dr. Trinh. She was started on Tegretol again. She reports taking 800 mg 2 days ago and 600 mg yesterday. Patient is only supposed to be taking 100 mg a day. She reports that the trigeminal neuralgia was so severe, that is why she took so much. The patient was seen by her PMD yesterday to advised her to come into the emergency department for worsening symptoms. The patient reports that she woke up this morning and checked her blood pressure which was 153/102. She reports not being able to feel her knees stating she was afraid she could not walk and was going to . Patient's headache has resolved. Patient is a non- smoker/ non- drinker. She denies trauma/injury, fevers, chills, dizziness, weakness, tingling, chest pain, shortness of breath, dyspnea on exertion, cough, abdominal pain, nausea, vomiting, diarrhea, back pain, neck pain, urinary/bowel changes, or any other complaint. Neurologist: Dr. Trinh Time/Duration: Other (3 days) Symptom Onset: Sudden Symptom Course: Resolved Activities at Onset: Rest, Light Context: Home Associated Symptoms (Text): 09/01/18 08:23 patient is extremely anxious and nervous. She presents from home accompanied by her via ambulance. History of severe trigeminal neuralgia. Her headache has since resolved. She reports that she woke up this morning and took her blood pressure is a matter of routine and it was elevated at 153/102. She is extremely anxious and nervous. She states that she could not feel her knees and was afraid that she would not be able to walk. She is ambulatory in the emergency department with no difficulty. She reports that she is afraid she is going to . She wants her liver enzymes evaluated. Past Medical History - Provider Review Nursing Documentation Reviewed: Yes - Infectious Disease Hx of Infectious Diseases: None - Tetanus Immunization Tetanus Immunization: Unknown - Cardiac Hx Cardiac Disorders: Yes Hx Hypertension: Yes Other/Comment: chest pain - Pulmonary Hx Respiratory Disorders: No - Neurological Hx Dizziness: Yes Hx Migraine: Yes Other/Comment: TRIGEMINAL NERVE PAIN - HEENT Hx HEENT Disorder: No - Renal Hx Renal Disorder: No - Endocrine/Metabolic Hx Endocrine Disorders: No - Hematological/Oncological Hx Blood Disorders: No - Integumentary Hx Dermatological Disorder: No - Musculoskeletal/Rheumatological Hx Musculoskeletal Disorders: Yes Hx Falls: Yes - Gastrointestinal Hx Gastrointestinal Disorders: Yes Other/Comment: ELEVATED LIVER ENZYMES - Genitourinary/Gynecological Hx Genitourinary Disorders: Yes Hx Urinary Tract Infection: Yes - Psychiatric Hx Psychophysiologic Disorder: No Hx Depression: No Hx Emotional Abuse: No Hx Physical Abuse: No Hx Substance Use: No - Past Surgical History Past Surgical History: No Previous - Anesthesia Hx Anesthesia: No - Suicidal Assessment Feels Threatened In Home Enviroment: No Family/Social History - Physician Review Nursing Documentation Reviewed: Yes Family/Social History: No Known Family HX Smoking Status: Never Smoked Hx Alcohol Use: No Hx Substance Use: No Hx Substance Use Treatment: No Allergies/Home Meds Allergies/Adverse Reactions: Allergies Penicillins Adverse Reaction (Verified 09/01/18 07:42) RASH Home Medications: Home Meds Medication Instructions Recorded Confirmed Pregabalin [Lyrica] 75 mg PO DAILY 09/01/18 09/01/18 Review of Systems - Physician Review All systems were reviewed & negative as marked: Yes - Review of Systems Constitutional: absent: Fatigue, Fevers Respiratory: absent: SOB, Cough Cardiovascular: absent: Chest Pain Gastrointestinal: absent: Abdominal Pain, Stool Changes, Diarrhea, Nausea, Vomiting Genitourinary Female: absent: Urine Output Changes Musculoskeletal: absent: Back Pain, Neck Pain Neurological: Headache. absent: Dizziness, Focal Weakness, Gait Changes, Speech Changes, Facial Droop, Seizure Physical Exam Vital Signs Reviewed: Yes Vital Signs Temp Pulse Resp BP Pulse Ox 09/01/18 07:35 99.7 F H 82 18 143/100 H 98 Temperature: Afebrile Blood Pressure: Hypertensive Pulse: Regular Respiratory Rate: Normal Appearance: Positive for: Well-Appearing, Non-Toxic, Comfortable, Other (severe anxiety) Pain Distress: None Mental Status: Positive for: Alert and Oriented X 3, other (Anxious) - Systems Exam Head: Present: Atraumatic, Normocephalic Pupils: Present: PERRL Extroacular Muscles: Present: EOMI Conjunctiva: Present: Normal Ears: Present: NORMAL TM, Normal Canal. No: Erythema, TM Bulging Mouth: Present: Moist Mucous Membranes Pharnyx: No: ERYTHEMA, EXUDATE, TONSILS ENLARGED Neck: Present: Normal Range of Motion. No: MIDLINE TENDERNESS, Paraspinal Tenderness Respiratory/Chest: Present: Clear to Auscultation, Good Air Exchange. No: Respiratory Distress, Accessory Muscle Use Cardiovascular: Present: Regular Rate and Rhythm, Normal S1, S2. No: Murmurs Abdomen: No: Tenderness, Distention, Peritoneal Signs Back: Present: Normal Inspection Upper Extremity: Present: Normal Inspection. No: Cyanosis, Edema Lower Extremity: Present: Normal Inspection, NORMAL PULSES, Normal ROM, Neurovascularly Intact. No: Edema, CALF TENDERNESS, Cyanosis, Tenderness, Swelling, Erythema, Deformity, Temperature Abnormalties Neurological: Present: GCS=15, CN II-XII Intact, Speech Normal, Motor Func Grossly Intact, Normal Sensory Function, Normal Cerebellar Funct, Gait Normal Skin: Present: Warm, Dry, Normal Color. No: Rashes Psychiatric: Present: Alert, Oriented x 3, Normal Insight, Normal Concentration, Anxious. No: Agitated, Depressed Mood Medical Decision Making ED Course and Treatment: 09/01/18 08:06 Impression: A 53 year old female presents for further evaluation of blood pressure and headache. Plan: -- Labs -- Reassess and disposition Progress Notes: 09/01/18 08:14: Patient reports she want to make sure her liver is working normally. 09/01/18 09:40 mildly elevated liver enzymes and mild leukopenia. Discharge home with to follow-up with PMD. Follow up in ER as needed. Take medications as prescribed. 09/01/18 09:47 patient remains extremely anxious and nervous. She does not feel as if she can go home. She does not feel as if she can walk. She believes she is going to have a heart attack. She feels that she is drowsy and she cannot walk up her stairs. I discussed in detail with her the amount of anxiety that she is having and if she would like to speak with a counselor. She agrees to speak to a counselor now. 09/01/18 11:25 seen and evaluated by crisis. Patient has been cleared for discharge. Patient is now requesting a note for no work for the next week. I discussed with her that I could give her one day off, and if she needed further time off she would need to follow-up with her regular doctor. - Lab Interpretations I have reviewed the lab results: Yes - Scribe Statement The provider has reviewed the documentation as recorded by the Scribe Marysol Pelletier Provider Scribe Attestation: All medical record entries made by the Scribe were at my direction and personally dictated by me. I have reviewed the chart and agree that the record accurately reflects my personal performance of the history, physical exam, medical decision making, and the department course for this patient. I have also personally directed, reviewed, and agree with the discharge instructions and disposition. Disposition/Present on Arrival - Present on Arrival Any Indicators Present on Arrival: No History of DVT/PE: No History of Uncontrolled Diabetes: No Urinary Catheter: No History of Decub. Ulcer: No History Surgical Site Infection Following: None - Disposition Have Diagnosis and Disposition been Completed?: Yes Diagnosis: Trigeminal neuralgia, Headache, Hypertension, Anxiety Disposition: HOME/ ROUTINE Disposition Time: 09:42 Patient Plan: Discharge Patient Problems: Current Active Problems Problem Status Onset Anxiety Acute Headache Acute Hypertension Acute Trigeminal neuralgia Acute Condition: GOOD Discharge Instructions (ExitCare): Trigeminal Neuralgia, High Blood Pressure in Adults, Anxiety, Adult (DC) Referrals: Az Ruelas MD [Primary Care Provider] - Follow up with primary Forms: [employer] (Al[place]ian)
[2018-09-01 08:41] LABS: BASO # 0.02 K/mm3 (0.0-2.0); BASO % 0.7 % (0.0-3.0); EOS # 0.1 (0.0-0.7); EOS % 2.7 % (1.5-5.0); GRAN # 1.74 (1.4-6.5); GRAN % 59.4 % (50.0-68.0); HEMOGLOBIN 13.4 g/dL (12.0-16.0); LYMPH # 0.9 (1.2-3.4); LYMPH % 30.4 % (22.0-35.0); MEAN CELL VOLUME 85.8 fl (80.0-105.0); MEAN CORPUSCULAR HEMOGLOBIN 28.3 pg (25.0-35.0); MEAN PLATELET VOLUME 10.6 fl (7.0-11.0); MONO # 0.2 (0.1-0.6); MONO % 6.8 % (1.0-6.0); RBC 4.73 10^6/uL (3.5-6.1); RED CELL DISTRIBUTION WIDTH 12.7 % (11.5-14.5); WHITE BLOOD COUNT 2.9 10^3/uL (4.5-11.0)
[2018-09-01 09:14] LABS: ALB/GLOB RATIO 1.5 (1.1-1.8); ALBUMIN 4.3 g/dL (3.0-4.8); ALT/SGPT 116 U/L (7-56); AST/SGOT 81 U/L (14-36); BLOOD UREA NITROGEN 22 mg/dL (7-21); CALCIUM 9.2 mg/dL (8.4-10.5); GFR NON-AFRICAN AMERICAN > 60
[2018-09-01 11:13] VITALS: BP 132/84; PULSE 78; RESP 19; O2SAT 97
[2018-09-01 12:14] VITALS: TEMP 98.5
== END 2018-09-01 12:11 | disposition home or self-care (01) ==
LOC: ED 07:34
DX: G50.0 Trigeminal neuralgia (principal); I10 Essential (primary) hypertension; F41.9 Anxiety disorder, unspecified

== ENCOUNTER 2018-09-04 23:42 | Emergency (ER) | payer BC ==
[2018-09-04 23:51] VITALS: RESP 18; O2SAT 100
[2018-09-05 00:13] VITALS: TEMP 98
--- NOTE | 2018-09-05 00:45 | ED PDOC ---
Arrival/HPI - General Chief Complaint: High Blood Pressure Time Seen by Provider: 09/04/18 23:46 Historian: Patient - History of Present Illness Narrative History of Present Illness (Text): 09/05/18 00:42 53-year-old female presents today with concerns for hypertension. Patient denies chest pain or shortness of breath. No fevers or chills. Patient states she has a history of trigeminal neuralgia and whenever she takes Tegretol it makes her blood pressure elevated. Patient states her blood pressure at home high in the 160s. Patient states that she has been getting flareup of her trigeminal neuralgia and it is only controlled with Tegretol but when she takes Tegretol it elevates her blood pressure. Patient states she is being followed by a neurosurgeon and is expected to have surgery for her trigeminal neuralgia. At present time patient denies any complaints. Past Medical History - Provider Review Nursing Documentation Reviewed: Yes - Travel History Have you recently traveled outside [place] w/in the past 3 mons?: No - Infectious Disease Hx of Infectious Diseases: None - Tetanus Immunization Tetanus Immunization: Unknown - Cardiac Hx Cardiac Disorders: Yes Hx Hypertension: Yes - Pulmonary Hx Respiratory Disorders: No - Neurological Hx Dizziness: Yes Hx Migraine: Yes Other/Comment: TRIGEMINAL NERVE PAIN - HEENT Hx HEENT Disorder: No - Renal Hx Renal Disorder: No - Endocrine/Metabolic Hx Endocrine Disorders: No - Hematological/Oncological Hx Blood Disorders: No - Integumentary Hx Dermatological Disorder: No - Musculoskeletal/Rheumatological Hx Musculoskeletal Disorders: Yes Hx Falls: Yes - Gastrointestinal Hx Gastrointestinal Disorders: Yes Other/Comment: ELEVATED LIVER ENZYMES - Genitourinary/Gynecological Hx Genitourinary Disorders: Yes Hx Urinary Tract Infection: Yes - Psychiatric Hx Psychophysiologic Disorder: No Hx Depression: No Hx Emotional Abuse: No Hx Physical Abuse: No Hx Substance Use: No - Past Surgical History Past Surgical History: No Previous - Anesthesia Hx Anesthesia: No - Suicidal Assessment Feels Threatened In Home Enviroment: No Family/Social History - Physician Review Nursing Documentation Reviewed: Yes Family/Social History: Unknown Family HX Smoking Status: Never Smoked Hx Alcohol Use: No Hx Substance Use: No Hx Substance Use Treatment: No Allergies/Home Meds Allergies/Adverse Reactions: Allergies Penicillins Adverse Reaction (Verified 09/04/18 23:51) RASH Home Medications: Home Meds Medication Instructions Recorded Confirmed Pregabalin [Lyrica] 75 mg PO DAILY 09/01/18 09/01/18 Review of Systems - Review of Systems Constitutional: absent: Fatigue, Fevers ENT: absent: Sore Throat, Sinus Congestion Respiratory: absent: SOB, Cough Cardiovascular: absent: Chest Pain, Palpitations Gastrointestinal: absent: Abdominal Pain, Vomiting Genitourinary Female: absent: Dysuria Musculoskeletal: absent: Arthralgias Skin: absent: Rash Neurological: absent: Headache, Dizziness Psychiatric: absent: Anxiety, Depression Physical Exam Vital Signs Reviewed: Yes Vital Signs Temp Pulse Resp BP Pulse Ox 09/05/18 00:12 98 F 81 18 137/95 H 100 09/04/18 23:51 97.8 F 68 18 152/91 H 100 Temperature: Afebrile Blood Pressure: Hypertensive Pulse: Regular Respiratory Rate: Normal Appearance: Positive for: Well-Appearing, Non-Toxic, Comfortable Pain Distress: None Mental Status: Positive for: Alert and Oriented X 3 - Systems Exam Head: Present: Atraumatic Mouth: Present: Moist Mucous Membranes Neck: Present: Normal Range of Motion Respiratory/Chest: Present: Clear to Auscultation, Good Air Exchange. No: Respiratory Distress, Accessory Muscle Use Cardiovascular: Present: Regular Rate and Rhythm, Normal S1, S2. No: Murmurs Neurological: Present: GCS=15 Skin: Present: Warm, Dry, Normal Color. No: Rashes Psychiatric: Present: Alert, Oriented x 3 Medical Decision Making ED Course and Treatment: 09/05/18 01:00 Patient is nontoxic well-appearing in no distress is stable vital signs minimally elevated blood pressure in the ER. Patient is without headache dizziness or weakness. EKG shows normal sinus rhythm at 67 bpm normal axis no ST elevations Patient is concerned that the Tegretol is the cause of her high blood pressure. She was advised to follow-up with the primary care physician and head of sales and marketing. She was advised me to return if symptoms worsen or persist or if new concerning symptoms develop Patient verbalized understanding of discharge instructions and need for follow- up with PMD and head of sales and marketing All aspects of this case were discussed the attending of record. Impression: Hypertension follow up with the primary care physician within the next 2 days follow up with the head of sales and marketing within the next 2 days return if symptoms worsen,persist or if new symptoms develop. Disposition/Present on Arrival - Present on Arrival Any Indicators Present on Arrival: No History of DVT/PE: No History of Uncontrolled Diabetes: No Urinary Catheter: No History of Decub. Ulcer: No History Surgical Site Infection Following: None - Disposition Have Diagnosis and Disposition been Completed?: Yes Diagnosis: Hypertension Disposition: HOME/ ROUTINE Disposition Time: 00:41 Patient Plan: Discharge Patient Problems: Current Active Problems Problem Status Onset Hypertension Acute Condition: GOOD Additional Instructions: follow up with the primary care physician within the next 2 days follow up with the head of sales and marketing within the next 2 days return if symptoms worsen,persist or if new symptoms develop. Referrals: Rudolph Frankel MD [Staff Provider] - Follow up with primary Roman Kevin MD [Staff Provider] - Follow up with primary Forms: [facility] (Guamanian), WORK NOTE
[2018-09-05 01:23] VITALS: BP 121/79; PULSE 72
--- NOTE | 2018-09-05 20:28 | CARD ---
APPROVED REPORT Date of service: 09/05/2018 EKG Measurement Heart [id number] OR [id number] <Conclusion> Normal sinus rhythm Possible Left atrial enlargement Borderline ECG
== END 2018-09-05 00:49 | disposition home or self-care (01) ==
LOC: ED 23:42
DX: I10 Essential (primary) hypertension (principal); G50.0 Trigeminal neuralgia

== ENCOUNTER 2018-10-19 12:12 | Outpatient (CLI) | payer BC | END 2018-10-19 12:13 | disposition home or self-care (01) | LOC: RAD 12:12 ==

== ENCOUNTER 2018-11-02 10:22 | Outpatient (CLI) | payer BC | END 2018-11-02 10:23 | disposition home or self-care (01) | LOC: RAD 10:22 ==

== ENCOUNTER 2018-12-19 16:20 | Outpatient (CLI) | payer BC | END 2018-12-19 16:21 | disposition home or self-care (01) | LOC: LAB 16:20 ==

== ENCOUNTER 2019-01-07 19:55 | Emergency (ER) | payer BC ==
[2019-01-07 20:08] VITALS: BMI 30.2
[2019-01-07 20:20] VITALS: TEMP 99.7
--- NOTE | 2019-01-07 20:33 | ED PDOC ---
Arrival/HPI - General Chief Complaint: Abdominal Pain Time Seen by Provider: 01/07/19 20:10 Historian: Patient - History of Present Illness Narrative History of Present Illness (Text): 01/07/19 20:29 Zenobia Herrera is a 53 year old female, whose past medical history includes trigeminal neuralgia on Carbamazepine, who presents to the ED complaining of abdominal pain. Patient states she has been experiencing RLQ pain radiating to her mid lower abdomen since yesterday. Patient reports she went to her director athletic today, who performed an abdominal and transvaginal US in the office which she reports was unremarkable. Patient also notes she has been constipated recently. Patient denies any fever, chills, nausea, vomiting, diarrhea, urinary symptoms, neck pain, headache, dizziness, or any other complaints. Symptom Onset: Gradual Symptom Course: Unchanged Activities at Onset: Light Context: Home Past Medical History - Provider Review Nursing Documentation Reviewed: Yes - Infectious Disease Hx of Infectious Diseases: None - Tetanus Immunization Tetanus Immunization: Unknown - Cardiac Hx Cardiac Disorders: Yes Hx Hypertension: Yes - Pulmonary Hx Respiratory Disorders: No - Neurological Hx Neurological Disorder: Yes Hx Dizziness: Yes Hx Migraine: Yes Other/Comment: TRIGEMINAL NERVE PAIN. EPILEPSY - HEENT Hx HEENT Disorder: No Other/Comment: EYE GLASSES - Renal Hx Renal Disorder: No - Endocrine/Metabolic Hx Endocrine Disorders: No - Hematological/Oncological Hx Blood Disorders: No - Integumentary Hx Dermatological Disorder: No - Musculoskeletal/Rheumatological Hx Musculoskeletal Disorders: Yes Hx Falls: Yes - Gastrointestinal Hx Gastrointestinal Disorders: Yes Other/Comment: ELEVATED LIVER ENZYMES - Genitourinary/Gynecological Hx Genitourinary Disorders: Yes Hx Urinary Tract Infection: Yes - Psychiatric Hx Psychophysiologic Disorder: No Hx Depression: No Hx Emotional Abuse: No Hx Physical Abuse: No Hx Substance Use: No - Past Surgical History Past Surgical History: No Previous - Anesthesia Hx Anesthesia: No - Suicidal Assessment Feels Threatened In Home Enviroment: No Family/Social History - Physician Review Nursing Documentation Reviewed: Yes Family/Social History: Unknown Family HX Smoking Status: Never Smoked Hx Alcohol Use: No Hx Substance Use: No Hx Substance Use Treatment: No Allergies/Home Meds Allergies/Adverse Reactions: Allergies Penicillins Adverse Reaction (Verified 01/07/19 20:08) RASH Review of Systems - Physician Review All systems were reviewed & negative as marked: Yes - Review of Systems Constitutional: Normal. absent: Fevers Eyes: Normal ENT: Normal Respiratory: Normal. absent: SOB, Cough Cardiovascular: Normal. absent: Chest Pain Gastrointestinal: Abdominal Pain, Constipation Genitourinary Female: Normal. absent: Dysuria, Frequency, Hematuria, Urine Output Changes Musculoskeletal: Normal. absent: Back Pain, Neck Pain Skin: Normal. absent: Rash Neurological: Normal. absent: Headache, Dizziness Endocrine: Normal Hemo/Lymphatic: Normal Psychiatric: Normal Physical Exam Vital Signs Reviewed: Yes Vital Signs Temp Pulse Resp BP Pulse Ox 01/07/19 20:20 99.7 F H 91 H 18 146/100 H 98 Temperature: Afebrile Blood Pressure: Hypertensive Pulse: Regular Respiratory Rate: Normal Appearance: Positive for: Well-Appearing, Non-Toxic, Comfortable Pain Distress: None Mental Status: Positive for: Alert and Oriented X 3 - Systems Exam Head: Present: Atraumatic, Normocephalic Pupils: Present: PERRL Extroacular Muscles: Present: EOMI Conjunctiva: Present: Normal Mouth: Present: Moist Mucous Membranes Neck: Present: Normal Range of Motion Respiratory/Chest: Present: Clear to Auscultation, Good Air Exchange. No: Respiratory Distress, Accessory Muscle Use Cardiovascular: Present: Regular Rate and Rhythm, Normal S1, S2. No: Murmurs Abdomen: Present: Tenderness (Mild RLQ tenderness). No: Distention, Peritoneal Signs Back: Present: Normal Inspection Upper Extremity: Present: Normal Inspection. No: Cyanosis, Edema Lower Extremity: Present: Normal Inspection. No: Edema Neurological: Present: GCS=15, CN II-XII Intact, Speech Normal Skin: Present: Warm, Dry, Normal Color. No: Rashes Psychiatric: Present: Alert, Oriented x 3, Normal Insight, Normal Concentration Medical Decision Making ED Course and Treatment: 01/07/19 20:29 Impression: 53 year old female complaining of RLQ pain. Plan: -- EKG -- Labs, cardiac enzymes, amylase, lipase -- UA -- Reassess and disposition Prior Visits: Notes and results from previous visits were reviewed. Progress Notes: Reviewed EKG, NSR at [address]-segment elevations or depressions, no T-wave inversions, normal intervals. 01/07/19 23:44 CT Abdomen and Pelvis: LUNG BASES: The lung bases appear clear. No pleural effusions are seen. LIVER: Unremarkable. GALLBLADDER AND BILE DUCTS: The gallbladder is suboptimally visualized due to contraction. No radioopaque gallstones are seen. No biliary ductal dilatation is evident. PANCREAS: Unremarkable. SPLEEN: Unremarkable. ADRENAL GLANDS: Unremarkable. KIDNEYS, URETERS, AND BLADDER: The kidneys appear within normal limits. There is no hydronephrosis or hydroureter. No urinary calculi are seen. The urinary bladder appeared normal in size and configuration. Subtle perivesical stranding noted could be compatible with acute cystitis. STOMACH AND BOWEL: Unremarkable appearance of the stomach. There is mucosal wall thickening of the duodenum and small intestinal tract with fluid in the lumen compatible with diffuse enteritis. Infectious or inflammatory etiologies are thought most likely. No evidence of bowel obstruction. There is diverticulosis coli seen within the sigmoid and rectosigmoid regions. Mucosal wall thickening and pericolonic haziness are seen to involve these regions of the colon compatible with acute diverticulitis. No pericolonic abscess formation or microperforation are detected. APPENDIX: No evidence of acute appendicitis on CT examination. PERITONEUM: No free fluid. No free air. LYMPH NODES: No lymphadenopathy is evident. REPRODUCTIVE: Unremarkable as visualized. VASCULATURE: No evidence of abdominal aortic aneurysm. BONES: No aggressive appearing osseous lesion. No acute osseous pathology evident. IMPRESSION: 1. Diverticulosis coli in the sigmoid and rectosigmoid regions with associated acute diverticulitis. No complicating process identified. 2. Evidence of diffuse enteritis. 3. Findings suggestive of acute cystitis. Electronically signed on January 07, 2019 11:42:28 PM EDT by: Omer Hough M.D., M.B.A., Certified By [employer] Trained MRI and CT Specialist - Lab Interpretations I have reviewed the lab results: Yes - RAD Interpretation Front End Drupal Developer: Radiologist - EKG Interpretation Interpreted by ED Physician: Yes Type: 12 lead EKG - Scribe Statement The provider has reviewed the documentation as recorded by the Justyn Clements Provider Scribe Attestation: All medical record entries made by the Scribe were at my direction and pers onally dictated by me. I have reviewed the chart and agree that the record accurately reflects my personal performance of the history, physical exam, medical decision making, and the department course for this patient. I have also personally directed, reviewed, and agree with the discharge instructions and disposition. Disposition/Present on Arrival - Present on Arrival Any Indicators Present on Arrival: No History of DVT/PE: No History of Uncontrolled Diabetes: No Urinary Catheter: No History of Decub. Ulcer: No History Surgical Site Infection Following: None - Disposition Have Diagnosis and Disposition been Completed?: Yes Diagnosis: Diverticulitis Disposition: HOME/ ROUTINE Disposition Time: 00:20 Condition: GOOD Discharge Instructions (ExitCare): Diverticulitis Additional Instructions: follow up with dr desai and return for severity of symptoms Prescriptions: Ciprofloxacin [Cipro] 500 mg PO BID #20 tab Metronidazole [Flagyl] 500 mg PO TID #30 tab Referrals: Weston Desai MD [Staff Provider] - Follow up with primary Forms: [facility] (Vietnamese), WORK NOTE
[2019-01-07 21:12] LABS: BASO # 0.01 K/mm3 (0.0-2.0); BASO % 0.1 % (0.0-3.0); EOS % 0.3 % (1.5-5.0); HEMOGLOBIN 11.7 g/dL (12.0-16.0); LYMPH # 1.6 (1.2-3.4); LYMPH % 17.9 % (22.0-35.0); MEAN CELL VOLUME 87.6 fl (80.0-105.0); MEAN CORPUSCULAR HGB CONC 33.1 g/dl (31.0-37.0); MEAN PLATELET VOLUME 10.4 fl (7.0-11.0); MONO # 0.8 (0.1-0.6); MONO % 8.8 % (1.0-6.0); PH,URINE 6.5 (4.7-8.0); RBC 4.04 10^6/uL (3.5-6.1); RED CELL DISTRIBUTION WIDTH 12.7 % (11.5-14.5); URINE BILIRUBIN NEGATIVE (NEGATIVE); URINE BLOOD NEGATIVE (NEGATIVE); URINE GLUCOSE (UA) NEGATIVE (NEGATIVE); URINE LEUKOCYTE ESTERASE SMALL Leu/uL (NEGATIVE); URINE PROTEIN NEGATIVE mg/dL (<30 mg/dL); URINE UROBILINOGEN 0.2 E.U./dL (<1 E.U./dL); WHITE BLOOD COUNT 8.9 10^3/uL (4.5-11.0)
[2019-01-07 21:13] LABS: URINE APPEARANCE CLEAR (CLEAR); URINE COLOR YELLOW (YELLOW)
[2019-01-07 21:16] LABS: INR 1.23; PARTIAL THROMBOPLASTIN TIME 30.4 Seconds (26.9-38.3); PROTHROMBIN TIME 13.6 SECONDS (9.4-12.5)
[2019-01-07 21:18] LABS: ALB/GLOB RATIO 1.4 (1.1-1.8); ALBUMIN 4.2 g/dL (3.0-4.8); ALT/SGPT 89 U/L (7-56); AMYLASE 91 U/L (35-125); AST/SGOT 104 U/L (14-36); BLOOD UREA NITROGEN 19 mg/dL (7-21); CALCIUM 9.3 mg/dL (8.4-10.5); GFR NON-AFRICAN AMERICAN > 60; LIPASE 146 U/L (23-300)
[2019-01-07 21:19] LABS: URINE BACTERIA FEW /hpf; URINE EPITHELIAL CELLS 0 - 2 /hpf (0-5)
[2019-01-07 21:27] LABS: TROPONIN I < 0.01 ng/mL
[2019-01-07] MEDS ORDERED: Iohexol 350 MG/100 ML VIAL ONE (22:15)
[2019-01-08 00:21] VITALS: BP 131/61; PULSE 72; RESP 17; O2SAT 98
--- NOTE | 2019-01-08 11:04 | CT ---
Date of service: 01/07/2019 PROCEDURE: CT Abdomen and Pelvis with contrast HISTORY: rlq pain COMPARISON: None. TECHNIQUE: Contrast dose: Radiation dose: Total exam DLP = 543.03 mGy-cm. This CT exam was performed using one or more of the following dose reduction techniques: Automated exposure control, adjustment of the mA and/or kV according to patient size, and/or use of iterative reconstruction technique. FINDINGS: LOWER THORAX: Unremarkable. LIVER: Unremarkable. No gross lesion or ductal dilatation. GALLBLADDER AND BILE DUCTS: Unremarkable. PANCREAS: Unremarkable. No gross lesion or ductal dilatation. SPLEEN: Unremarkable. ADRENALS: Unremarkable. No mass. KIDNEYS AND URETERS: Unremarkable. No hydronephrosis. No solid mass. VASCULATURE: Unremarkable. No aortic aneurysm. No aortic atherosclerotic calcification or mural plaque present. BOWEL: There is diverticulitis of the sigmoid colon. There is no abscess or perforation. There is also some mural thickening in the small bowel in the right upper quadrant consistent with enteritis APPENDIX: Normal appendix. PERITONEUM: Unremarkable. No free fluid. No free air. LYMPH NODES: Unremarkable. No enlarged lymph nodes. BLADDER: Unremarkable. REPRODUCTIVE: Unremarkable. BONES: No acute fracture. OTHER FINDINGS: The report concurs with the preliminary [facility] report IMPRESSION: There is diverticulitis of the sigmoid colon. There is no abscess or perforation. There is also some mural thickening in the small bowel in the right upper quadrant consistent with enteritis
--- NOTE | 2019-01-08 15:50 | CARD ---
APPROVED REPORT Date of service: 01/07/2019 EKG Measurement Heart [id number] <Conclusion> Normal sinus rhythm Possible Left atrial enlargement Borderline ECG
== END 2019-01-08 00:19 | disposition home or self-care (01) ==
LOC: ED 19:55
DX: K57.92 Diverticulitis of intestine, part unspecified, without perforation or abscess without bleeding (principal); I10 Essential (primary) hypertension; G50.0 Trigeminal neuralgia
CPT/HCPCS: 74177; 80053; 81001; 81025; 82150; 82550; 83615; 83690; 84484; 85025; 85610; 85730; 87086; 93005; 99284; Q9967